=== PATIENT | male | born 1970 | race Caucasian/White ===

== ENCOUNTER 2019-10-28 15:28 | Observation (INO) | payer OTHER ==
[2019-10-28] MEDS ORDERED: NS 0.9% 1000 ML** 1,000 ML IV.FLUID IV ONE (15:33)
[2019-10-28] MEDS ORDERED: NS 0.9% 1000 ML** 1,000 ML IV ONE ×3 (15:39→18:04)
[2019-10-28] MEDS ORDERED: Diltiazem IV BAG* D5W Premix 125 MG/125 ML BAG IV ONE (15:40)
[2019-10-28] MEDS ORDERED: Diltiazem IV push/loading dose 5 MG/ML 5 ML vial (25 mg) IV SLOW PU ONE (15:40)
--- NOTE | 2019-10-28 15:41 | ED ---
Hypertension - HPI Summary HPI Summary: This patient is a 49 year old M presenting to [facility] with a chief complaint of heart racing/ Afib since this morning 10/28/19. Symptoms aggravated by nothing. Symptoms alleviated by nothing. Patient reports abdominal pain, vomiting (twice today). Patient denies diarrhea, recent cough, cold, or fever, pain or swelling in legs, pain or pressure in chest. Denies hx blood clots in legs, diabetes, HTP. Last ate yesterday. Has had afib around once before. Pt reports drinking alcohol yesterday (few shots of bourbon) but denies drinking today. - History of Current Complaint Chief Complaint: EDDysrhythmPalp Stated Complaint: A FIB Time Seen by Provider: 10/28/19 15:30 Hx Obtained From: Patient Onset/Duration: Started Hours Ago, Still Present Timing: Lasting Hours Aggravating Factor(s): Nothing Alleviating Factor(s): Nothing Associated Signs & Symptoms: Other: - abdominal pain, vomiting; denies diarrhea , recent cough, cold, or fever, pain or swelling in legs, pain or pressure in chest - Allergies/Home Medications Allergies/Adverse Reactions: Allergies Allergy/AdvReac Type Severity Reaction Status Date / Time phenobarbital Allergy Unknown Verified 10/28/19 15:33 Reaction Details Home Medications: Home Medications Omeprazole CAP (NF) [Prilosec CAP* 20 MG] 40 mg PO DAILY 10/28/19 [History Confirmed 10/28/19] PMH/Surg Hx/FS Hx/Imm Hx Endocrine/Hematology History: Denies: Hx Diabetes Cardiovascular History: Reports: Hx Atrial Fibrillation Denies: Hx Hypertension - Surgical History Surgery Procedure, Year, and Place: 2 knee surgeries, hernia Infectious Disease History: No Infectious Disease History: Denies: Traveled Outside the [place] in Last 30 Days - Family History Known Family History: Positive: Cardiac Disease, Other - anxiety, alcoholism Negative: Diabetes - Social History Alcohol Use: Weekly Hx Substance Use: Yes 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 Negative: Chest Pain - denies pain or pressure in chest Positive: Abdominal Pain, Vomiting. Negative: Diarrhea Positive: Other - denies pain or swelling in legs All Other Systems Reviewed And Are Negative: Yes Physical Exam - Summary Physical Exam Summary: Constitutional: Well-developed, Well-nourished, Alert. (-) Distressed Skin: Warm, Dry HENT: Normocephalic; Atraumatic Eyes: Conjunctiva normal Neck: Musculoskeletal ROM normal neck. (-) JVD, (-) Stridor, (-) Tracheal deviation Cardio: tachycardic, irregular rhythm, Heart sounds normal; Intact distal pulses ; The pedal pulses are 2+ and symmetric. Radial pulses are 2+ and symmetric. (- ) Murmur Pulmonary/Chest wall: (-) Respiratory distress, faint expiratory wheezes bilaterally, (-) Rales Abd: Soft, (-) tenderness, (-) Distension, (-) Guarding, (-) Rebound Musculoskeletal: (-) Edema Lymph: (-) Cervical adenopathy Neuro: Alert, Oriented x3 Psych: Mood and affect Normal Triage Information Reviewed: Yes Vital Signs On Initial Exam: Initial Vitals Temp Pulse Resp BP Pulse Ox 97.1 F 163 16 147/103 98 10/28/19 15:29 10/28/19 15:29 10/28/19 15:29 10/28/19 15:29 10/28/19 15:29 Vital Signs Reviewed: Yes Procedures - Sedation Patient Received Moderate/Deep Sedation with Procedure: No Diagnostics - Vital Signs Vital Signs Temp Pulse Resp BP Pulse Ox 10/28/19 15:29 97.1 F 163 16 147/103 98 - Laboratory Result Diagrams: 10/28/19 15:54 10/29/19 06:37 Lab Statement: Any lab studies that have been ordered have been reviewed, and results considered in the medical decision making process. - Radiology Chest X-Ray Radiology Interpretation Completed By: Radiologist Summary of Radiographic Findings: Per radiologist,. NO ACTIVE CARDIOPULMONARY DISEASE. ED Physician has reviewed this imaging report. - EKG 1531 Cardiac Rate: NL - 165 BPM Summary of EKG Findings: An EKG taken at 1531 reveals atrial fibrillation at 165 bpm and no stemi. Hypertension Course/Dx - Course Course Of Treatment: This patient is a 49 year old M presenting to [facility] with a chief complaint of heart racing/ Afib since this morning 10/28/19. Patient reports abdominal pain, vomiting (twice today). Patient denies diarrhea, recent cough, cold, or fever, pain or swelling in legs, pain or pressure in chest. Denies hx blood clots in legs, diabetes, HTP. Last ate yesterday. Has had afib around once before. Physical Exam Findings reveal no abnormalities except for tachycardic, irregular rhythm. An EKG taken at 1531 reveals atrial fibrillation at 165 bpm and no stemi. CXR reveals NO ACTIVE CARDIOPULMONARY DISEASE. Test results with no significant abnormalities expect for RBC 5.92 H, Absolute Neuts 7.9 H, Absolute Lymphs 0.8 L, Carbon Dioxide 19 L, Anion Gap 15 H , BUN/Creatinine Ratio 7.9 L, Glucose 148 H, Lactic Acid 2.9 H, Magnesium 1.1 L , Total Bilirubin 1.40 H,. In the ED course the patient was given diltiazem/ Dextrose 10 mls/hr, saline, Diltiazem Hcl 20 mg. We discussed patient care with hospitalist, Dr. Silva, who accepts patient for admission. Patient will be admitted with Dx Afib with RVR and hypomagnesemia. The patient is agreeable with this plan. - Diagnoses Provider Diagnoses: Atrial fibrillation with RVR, Hypomagnesemia - Physician Notifications Discussed Care Of Patient With: Francine Joy Time Discussed With Above Provider: 16:48 - call [place] for recommendations Instructed by Provider To: Other - 1656- flores, Cardiology, wants to talk to Rufino; 1722- Rufino tells ED physician to talk to Dr. Mack of ICU; 1726 Dr. Mack is likely to admit pt but there are no current ICU beds available; 1847 Shira refers ED Physician back to [place]; 1848 Dr. Mack will reach out to Dr. Silva; 1900 Dr. Silva accepts pt for admission - Critical Care Time Critical Care Time: 30-74 min - 60 minutes Discharge ED - Sign-Out/Discharge Documenting (check all that apply): Patient Departure - admit - Discharge Plan Condition: Stable Disposition: ADMITTED TO [facility] - Billing Disposition and Condition Condition: STABLE Disposition: Admitted to [facility] - Attestation Statements Document Initiated by Scribe: Yes Documenting Scribe: Rajni Hall Provider For Whom Scribe is Documenting (Include Credential): Dr. Kaveh Hicks, Jacky.OKeith Scribe Attestation: IRajni, scribed for Dr. Kaveh Hicks, RandyOKeith on 10/29/19 at 1259. Scribe Documentation Reviewed: Yes Provider Attestation: The documentation as recorded by the scribe, Rajni Hall accurately reflects the service I personally performed and the decisions made by me, Dr. Kaveh Hicks, Jacky.O. Status of Scribe Document: Viewed
[2019-10-28 16:16] LABS: ABS Lymphocytes 0.8 10^3/ul (1.0-4.8); ABS Monocytes 0.4 10^3/ul (0-0.8); ABS Neutrophils 7.9 10^3/ul (1.5-7.7); Eosinophil % 0.2 %; Hematocrit 49 % (42-52); Lymphocyte % 8.8 %; Mean Corpuscular HGB Conc 35 g/dL (31-36); Mean Corpuscular Hemoglobin 29 pg (27-31); Mean Corpuscular Volume 82 fL (80-94); Mean Platelet Volume 8.5 fL (7.4-10.4); Platelet Count 156 10^3/uL (150-450); Red Blood Count 5.92 10^6 /uL (4.18-5.48); Red Cell Distribution Width 15 % (10-15); White Blood Count 9.1 10^3/uL (3.5-10.8)
[2019-10-28 16:30] LABS: ALT 31 U/L (7-52); AST 34 U/L (13-39); Albumin 4.5 g/dL (3.2-5.2); Albumin/Globulin Ratio 1.5 (1-3); Alkaline Phosphatase 85 U/L (34-104); Anion Gap 15 mmol/L (2-11); BUN/Creatinine Ratio 7.9 (8-20); Blood Urea Nitrogen 7 mg/dL (6-24); CO2 Carbon Dioxide 19 mmol/L (22-32); Chloride 102 mmol/L (101-111); EGFR African American 109.9 (>60); EGFR Non-African American 90.9 (>60); Glucose 148 mg/dL (70-100); Magnesium 1.1 mg/dL (1.9-2.7); Potassium 3.5 mmol/L (3.5-5.0); Sodium 136 mmol/L (135-145); Total Protein 7.5 g/dL (6.4-8.9)
[2019-10-28] MEDS ORDERED: Potassium Chlor TAB* 20 MEQ TAB.ER PO ONE (16:42)
[2019-10-28] MEDS ORDERED: Magnesium Sulfate 2 GM IV* 2 GM/50 ML BAG IVPB ONE (16:42)
[2019-10-28 17:01] LABS: Alcohol < 10 mg/dL (<10)
[2019-10-28 17:06] LABS: Activated Partial Thrombo Time 29.1 seconds (26.0-38.0); INR 1.01 (0.82-1.09)
[2019-10-28 17:15] LABS: TSH (Thyroid Stimulating Horm) 0.88 mcIU/mL (0.34-5.60)
--- OUTSIDE RECORDS SUMMARY | 2019-10-28 17:16 | XMS REPORT | Continuity of Care Document ---
:1970 Author Organization 0001 - [employer] Address [address] [place] [address] Phone Care Team Providers Name Role Phone CHRISTIAN PIMENTEL NP Unavailable Unavailable Allergies, Adverse Reactions, Alerts Substance Reaction Status phenobarbital Unknown Active Medications Medication Instructions Dosage Effective Dates Status Comments (start - stop) Viagra 50 mg take 1 tablet by oral 50 MG - Active tablet route every day as needed approximately 1 hour before sexual activity omeprazole 40 mg take 1 capsule by 40 MG - Active capsule,delayed oral route every day release before a meal Valtrex 1 gram take 1 caplet by ORAL - Active tablet route every 8 hours as needed for 7 days. Viagra 50 mg take 1 tablet by oral 50 MG - No Longer tablet route every day as Active needed approximately 1 hour before sexual activity labetalol 100 mg take 1 tablet by oral 100 MG - No Longer tablet route 3 times every Active day Problems Condition Effective Dates (start - Clinical Status stop) Essential (primary) hypertension Erectile dysfunction, unspecified erectile dysfunction type Gastroesophageal reflux disease without esophagitis Mild depression Essential (primary) hypertension Cellulitis of right hand STI (sexually transmitted infection) Cellulitis of right hand Erectile dysfunction, unspecified erectile dysfunction type Essential (primary) hypertension Personal history of nicotine - dependence Essential (primary) hypertension - Contact w and exposure to infect w - a sexl mode of transmiss Essential (primary) hypertension Generalized anxiety disorder Sexually transmitted disease exposure Hemorrhoids Herpes simplex Vaccine against DTP - Laceration of scalp Concussion with no loss of consciousness Depression Depression Reaction, adjustment w/mixed emotion Muscle strain Accidental fall NOS - Place of occurrence NEC - Hypertension, Unspecified Depression Hypertension, Unspecified Depression Hypertension, Unspecified Depression Reaction, adjustment w/mixed emotion Reaction, adjustment w/mixed emotion Hypertension, Unspecified Reaction, adjustment w/mixed emotion Hypertension, Unspecified Sinusitis, acute maxillary Depression Hypertension, Unspecified Depression Hypertension, Unspecified Hypertension, Unspecified Atrial fibrillation Hypertension, Unspecified Hypertension, Unspecified - Atrial Fibrillation Hypertension, Unspecified Atrial Fibrillation - Hypertension, Unspecified - Depression Atrial Fibrillation Depression Atrial Fibrillation - Depression - Atrial Fibrillation Diverticulitis Depressive disorder Atrial Fibrillation - Diverticulitis, colon w/o hem - Depression - Atrial Fibrillation Shortness of breath Elevated liver enzymes Abdominal pain Atrial Fibrillation - Atrial Fibrillation - Atrial Fibrillation - Shortness of Breath - Abnormal Liver Enzymes - Abdominal Pain - Raynauds disease Raynaud's Syndrome - Reflux, esophageal Contraceptive management NOS - Mixed Hyperlipidemia Diverticulosis, colon w/o hem Contraception management Acute Bronchitis, acute Acute Mixed Hyperlipidemia Chronic Atrial Fibrillation Improved Examination, routine medical No evidence of disease Diverticulosis, colon w/o hem Resolved Routine Medical Exam Routine Adjustment reaction with anxiety Symptomatic and depression Procedures Procedure Date Procedure Unknown Results Test Name Date and Time Measure Units Reference Range Abnormal Flag Status Comments Unknown Encounters Encounter Practice Location Reason(s) Diagnoses Date Provider Providers Description For Visit Copied on Encounter 2019 - [facility] Primary Essential (primary) [facility] hypertensionErectil 2-202 CHRISTIAN. [address] [place] e dysfunction, [address], Street, erectile [place] dysfunction [place], [place], [place], [address], [place] l reflux disease [address]. tel: without tel: [phone] esophagitisMild [id number] depression 2019 - [facility] Primary Dec-3 NED[facility], [facility] [place] - CHRISTIAN. [address] [place] [address] [facility], Street, [facility], [place], [place], [address], [place] [address]. tel:+60 tel:[phone] 0001 - [facility] Primary Essential (primary) Nov- LORD ANUSHA. [facility], [facility] hypertension 6- [facility] 119 [address], [address], [place], [facility], [place], [address]. [address], [place] tel:+60 tel:[phone] 0001 - [facility] Primary Cellulitis of right Sep-1 LORD ANUSHA. [facility], [facility] handSTI (sexually [facility] 119 [address] [place] transmitted [address], [place] infection) [facility], [place], [address]. [address], [place] tel:+60 tel:[phone] 0001 - [facility] Primary Cellulitis of right Sep-1 LORD ANUSHA. [facility], [facility] handErectile [facility] 119 [address] [place] dysfunction, [address], Eron unspecified [facility], erectile [place], [facility], [place], [place], typeEssential [address]. [address], [place] (primary) tel:+60 tel:[phone] hypertensionPersona [phone] l history of nicotine dependence 0001 - [facility] Primary February- LORD TAVARES. [facility] Inc, [facility] 119 [address] [place] [address], [address], [facility], [place], [address]. [address], [place] tel:+60 tel:[phone] 0001 - [facility] Primary Essential (primary) Apr-2 LORD ANUSHA. [facility] Inc, [facility] hypertensionContact 0-201 [facility] 119 [address] [place] w and exposure to [address], Eron infect w a sexl [facility], mode of transmiss [facility], [place], [address]. [address], [place] tel:+[phone] tel:[phone] 0001 - [facility] Primary Essential (primary) Apr-1 LORD ANUSHA. [facility], [facility] hypertensionGeneral - [facility] 119 [address] [place] ized anxiety 8 [facility], [place] disorderSexually [facility], transmitted disease [facility], [place], [address]. [address], [place] tel: tel: [phone] 0001 - [facility] Primary Hemorrhoids May- SKIFF [facility], [facility] THEE. [address] [place] 5 [facility] PC Eron 119 [facility], [place], [place], [place], [address], [facility], tel: [phone] tel: [phone] 0001 - [facility] Primary Herpes simplex Nov- SKIFF [facility] Inc, [facility] THEE. [address] [place] 4 [facility] PC [address] [place], [place], [place], [address], [facility], tel: [phone] tel: [phone] 0001 - [facility] Primary Vaccine against Jul- SKIFF Referring [facility] DTPLaceration of THEE. Provider: NathalieLuis [place] scalpConcussion 4 [facility] PC THEE [place] with no loss of [address] SKI, [facility] Street, [facility], 119 [facility], [place], [place], [facility] [address], [facility], tel: [phone], [phone]. [id number] tel: tel:[phone] 0001 - [facility] Primary Depression Sep-0 LORD ANUSHA. S Inc, [facility] 8- SP 119 [address] [place] 4 [facility], [facility], [facility], [place], [address]. [address], [place] tel: tel: [phone] 0001 - [facility] Primary Depression Sep-0 LORD ANUSHA. Referring [facility] 3- SPC 119 Provider: [address], ANUSHA PEREZ, [facility] 119 [place], [place], [facility], [place], [address]. [place], [address], [place], [address]. tel: [phone] tel: [phone] 0001 - S Primary Reaction, Apr-0 SKIFF Referring [facility], [facility] [place] adjustment w/mixed THEE. Provider: 33[address] SKIFF, [facility], 119 [facility], [place], [place], [facility] [address], [place], [place], tel: [address]. [place], [address]. [id number] tel: tel: [phone] 0001 - S [employer] Dec- PEDRO LUIS HO. Referring [facility], [place] strainAccidental 4417 Provider: Tillman fall NOSPlace of [address] [place] [address]. [facility], [place], [address], [place] [address]. tel: tel: [phone] 0001 - [facility] Primary Hypertension, Dec-0 LORD TAVARES. [facility], [facility] [place] UnspecifiedDepressi 3-201 SP 119 [address] [place] on [address] [place] [address], [place], [address]. [address], [place] tel: tel: [phone] 0001 - [facility] Primary Hypertension, Nov-0 LORD TAVARES. [facility], [facility] [place] UnspecifiedDepressi 5-201 SPC 119 [address] [place] on 3 [facility], [place], [address]. [address], [place] tel: tel: [phone] 0001 - [facility] Primary Hypertension, Oct-2 LORD TAVARES. [facility], [facility] UnspecifiedDepressi 9-201 SPC 119 [address] [place] on 3 [facility], [address] [address], [place], [facility], [place], [address]. [address], [place] tel: tel: [phone] 0001 - S Primary Reaction, Sep-1 LORD AUNSHA. Referring [facility] adjustment w/mixed 1 [facility] 119 Provider: Nathalie-57 Sha emotion 3 [facility], ANSUHA LORD, Eron [facility] [address], [place], [facility], [facility], [place], [address]. [place], [address], [place] tel:+ [place], [address]. tel: [phone] tel: [phone] 0001 - S Primary Reaction, Sep-0 LORD ANUSHA. [facility] adjustment w/mixed 3-201 [facility] 119 [address] [place] emotionHypertension 3 [facility], [place] , [address], [place], [facility], [place], [address]. [address], [place] tel: tel: [phone] 0001 - S Primary Reaction, Aug-2 LORD ANUSHA. Referring [facility] adjustment w/mixed 7 [facility] 119 Provider: Maribel Dalton emotionHypertension 3 [facility], ANUSHA LORD, [place] , [facility] [address], UnspecifiedSinusiti [place], [facility], Western s, acute [facility], [place], [address]. [place], [address], [place], [address]. tel: [phone] tel:[phone] 0001 - S Primary Adjustment reaction Aug-1 SKIFF Referring [facility] with anxiety and THEE. Provider: Tamera57 Sha depression 3 [facility] THEE [place] 119 [facility] SKI, [facility] Street, St, 119 [facility], [facility], [place], [place], [place] [address], [place], [place], tel: [phone]. [place], [address]. [id number] tel: tel:[phone] 0001 - [facility] Primary DepressionRoutine LORD TAVARES. Referring [facility], [facility] Medical Exam [facility] 119 Provider: 33[address] [place] 3 [facility], ANUSHA PEREZ, [facility] [address], [place], [facility], [facility], [place], [address]. [place], [address], [place] tel:+ [place], [address]. tel: [phone] tel: [phone] 0001 - [facility] Primary Hypertension, LORD TAVARES. Referring [facility], [facility] UnspecifiedDepressi 6 [facility] 119 Provider: 33-57 Sha on 3 [facility], ANUSHA PEREZ, [facility] [address], [place], [facility], [facility], [place], [address]. [place], [address], [place]:+ [place], [address]. tel: [phone] tel: [phone] 0001 - [facility] Primary Hypertension, LORD TAVARES. Referring [facility], [facility] Unspecified 2- [facility] 119 Provider: [address] [place] 3 [facility], ANUSHA PEREZ, [facility] [address], [place], [facility], [facility], [place], [address]. [place], [address], [place], [address]. tel: [phone] tel: [phone] 0001 - [facility] Primary Hypertension, LORD TAVARES. [facility], [facility] Unspecified 2- [facility] 119 [address] [place] [address] [facility] [address], [facility], [place], [facility], [place], [address]. [address], [place] tel: tel: [phone] 0001 - [facility] Tram Atrial fibrillation Mar-2 GAUTAM [facility], Cardiology PRINCE. 30 33-57 3 [facility], [place], [place] [address], [place], [place], [place] [address], [place], [place], tel: [phone] tel: [phone] 0001 - [facility] Primary Hypertension, Mar-2 LORD TAVARES. [facility], [facility] [place] UnspecifiedHyperten - [facility] 119 [address] [place] sheila, Unspecified [address], [facility] [address], [place], [place], [place], [address]. [address], [place] tel: tel: [phone] 0001 - [facility] Tram Atrial Mar-1 GAUTAM [facility], Cardiology FibrillationHyperte - PRINCE. 30 33[address]57 nsion, 3 [facility] Un[address], [place], FibrillationHyperte [address] nsion, Unspecified 250, [place], [place], [place] [address], [place], [place], tel: [phone] tel: [phone] 0001 - [facility] Primary DepressionAtrial Feb-2 LORD TAVARES. [facility], [facility] FibrillationDepress - [facility] 119 [address] [place] ionAtrial 3 [facility], [place] FibrillationDepress [facility], ion [place], [place], [place], [address]. [address], [place] tel: tel: [phone] 0001 - [facility] Primary Atrial Feb-1 LORD TAVARES. [facility], [facility] FibrillationDiverti - [facility] 119 [address] [place] culitisDepressive 3 [facility], [place] disorderAtrial [facility], FibrillationDiverti [place], Western culitis, colon w/o [place], [place], [place], hemDepression [address]. [address], [place] tel: tel: [phone] 0001 - [facility] Primary Atrial Feb-0 LORD TAVARES. Referring [facility], [facility] FibrillationShortne 4- [facility] 119 Provider: 33-57 [place] ss of [address], ANUSHA PEREZ, [place] breathElevated [facility] [address], liver [place], [facility], [place] enzymesAbdominal [place], [place], [place], painAtrial [address]. [place], [address], [place] FibrillationAtrial [place]: [place], [address]. tel: FibrillationAtrial [phone] tel:+ [phone] FibrillationAtrial [phone] FibrillationShortne ss of BreathAbnormal Liver EnzymesAbdominal Pain 0001 - [facility] Primary Raynauds Sep- [facility] Pick a Student, [facility] diseaseRaynaud's 0-201 THEE. [place] Syndrome [address], [place], [address], [place], tel:+ [phone] tel: [phone] 0001 - [facility] Primary Reflux, esophageal Dec- LORD TAVARES. [employer], [facility] 7-201 [place] [address] [address] [place] [address], [place], [address]. [address], [place] tel: tel: [phone] 0001 - [facility] Primary Contraception Oct- [facility] Pick a Student, [facility] managementContracep 3-201 THEE. [place] tive management NOS [address], [place], [address], [place], tel:+ [phone] tel: [phone] 0001 - [facility] Primary Mixed Paulo- LORD TAVARES. [employer], [facility] HyperlipidemiaDiver 5-[address] [place] [address] [address] [place] [address] ticulosis, colon 0 [facility] w/o hem [facility], [place], [address]. [address], [place] tel:+ tel: [phone] 0001 - [facility] Primary Diverticulosis, February-0 LORD TAVARES. [employer], [facility] colon w/o hemMixed 3-[address] [place] [address] [address] [place] [address] Hyperlipidemia 0 [facility], [place], [address]. [address], [place] tel:+ tel:+ [phone] 0001 - [facility] Primary Examination, [facility] Pick a Student, [facility] routine medical 0-200 THEE. [place] [address], [place], [address], [facility], tel: [phone] tel: [phone] 0001 - [facility] Primary Bronchitis, acute Dec- SKIFF [facility], [facility] 0-200 THEE. [address] [place] [address], [place], [address], [facility], tel: [phone] tel: [phone] 0001 - [facility] Primary Nov- LORD ANUSHA. [facility], [facility] 6[address] [place] [address] [address] [place] 5 [place], [address]. [address], tel: tel: [phone] Family History Family Member Diagnosis Age At Onset Family history of Heart disease Father Father Lung disease Family history of Hypertension Father COPD (Cause Of ) Father Atrial Fibrillation (Cause Of ) Father Brother Atrial Fibrillation Family history of Bowel disorder Immunizations Vaccine Date Status Comments Tdap administered Source: Source Unspecified Payers Payer name Insurance type Covered republican ID Authorization(s) [facility] Organiz Contrac UB or 1500 He Social History Type Description Quantity Date Captured Comments Alcohol Use Details Unknown Caffeine Use Details Unknown Tobacco Use Status Unknown Smoking Status Unknown Vital Signs Date / Height Weight BMI Pulse Blood Temperature Respiratory Body Head BMI Time: Rate Pressure Rate Surface Circumference percentile Area Unknown Chief Complaint And Reason For Visit No information Reason For Referral Reason For Referral Unknown Plan Of Care Date Type Action Status Referral Ordered: ordered Nuclear Scan Myocardial Perfusion Rest and Stress (must specify Treadmill or Per Appointment date/timeframe: 01/12/2013 Referral Referred To: ordered PRINCE FLOREZ [address] [facility] [place], [address] [phone] Ordered: PRINCE FLOREZ. Cardiology. Consult and treat. Referral Ordered: ordered EKG, Complete Referral Ordered: ordered Echocardiography With Color Flow Referral Ordered: ordered Nuclear Scan Lung Perfusion Referral Ordered: ordered CT Abdomen & Pelvis w/Contrast Referral Ordered: ordered Xray Chest 2 view Referral Ordered: ordered CT Chest Angiogram Referral Referred To: ordered YOON SNYDER [facility] [address] [place], [address] [phone] Ordered: YOON SNYDER. Urology. Consult and treat. Appointment date/timeframe: 11/24/2011 Referral Ordered: ordered . Gastroenterology. Consult and treat. Appointment date/timeframe: 03/11/2010 Date Type Problem Goal Intervention Status Start Date Unknown History Of Present Illness Encounter Date Complaint History Of Present Illness No information Functional Status Encounter Date Functional Assessment Cognitive Assessment Unknown Medications Administered Medication Instructions Dosage Effective Dates (start - stop) Status Comments Drug Treatment Unknown Instructions Date Instruction Additional Information Pt states he is handling this Related to Mild depression through staying active and working. States he does not want to be on medications at this time. Pt to call with any worsening symptoms of depression or suicidal thoughts. Begin taking the Omeprazole 40mg Related to Gastroesophageal reflux once per day at least 30 minutes disease without esophagitis before breakfast. Call with any worsening symptoms or if symptoms fail to improve. Risks and benefits of new medication discussed. Continue taking the Viagra one tab Related to Erectile dysfunction, one hour before sexual unspecified erectile dysfunction type activity..Call with any further concerns. Our goal is for your blood pressure Related to Essential ( primary) to be less than 140/90. Continue a hypertension low salt, low fat diet. Check blood pressure routinely, call with any increase in blood pressure over 140/90. Complete the 10 days of the Keflex Related to Cellulitis of right hand that I prescribed and culture was obtained today, I will send for C&S and let you know of the results. PT will be tested today for HIV, Hep Related to STI (sexually transmitted C and RPR and will retest again in 6 infection) months. Continue with low salt diet and Related to Essential (primary) increase activity level. Our goal is hypertension for your blood pressure to be below 140/90. PT agrees to take his medication as prescribed if I gave him the viagra to use for any issues with erectile dysfunction. Pt will trial the viagra 50mg one Related to Erectile dysfunction , hour prior to intercourse and will unspecified erectile dysfunction type call for any further issues or concerns. Risks and benefits of new medication discussed. Patient verbalized understanding Pt will soak the right hand in epsom Related to Cellulitis of right hand salts three times per day and keep the hand clean and take Keflex three times per day for another 10 days , call if the area worsens or fails to improve in the next few days. Continue with low salt diet and Related to Essential (primary) increase activity level. Our goal is hypertension for your blood pressure to be below 140/90. We will start on Labetolol one tablet three times per day and recheck in 2 weeks, Get the labs done a some point next week. I ordered HIV, RPR , GC and Related to Sexually transmitted Chlamydia in the urine, he will get disease exposure that done next week. PT is going to start counseling at Related to Generalized anxiety [facility] and form completed disorder today. Follow the recommendations on the Related to Hemorrhoids handout and use the proctocorsol cream as needed. When it become feasible we can refer to surgery , if desired. I have prescribed valtrex in case of Related to Herpes simplex recurretn attacks . He will have further STI testing through the health department. WAtch for progressive neurologic Related to Concussion with no loss of signs, rest. Follow up in one week. consciousness Wound close with histocryl glue. Related to Laceration of scalp [place]vised [place] [facility] for evidence of infection PT will continue his Klonopin as Related to Depression needed, the effexor every day and was able to contract for safety at today's visit. He agrees to try to call [facility] in [place] for assistance as well. Pt will restart the effexor XR daily Related to Depression and use the Klonopin one every 8 hours as needed for anxiety, do not drink any alcohol at all with the current meds. Pt agrees to call a [facility] in [place] and keep the appt with the ceo & board director, pt is able to contract for safety. Agrees to call the crisis center for any further needs or thoughts of suicide.
[2019-10-28] MEDS ORDERED: Metoprolol Tartrate IV* 1 MG/ML 5 ML VIAL IV ONE (18:03)
[2019-10-28] MEDS ORDERED: Enoxaparin(*) 100 MG/ML SYR SUBCUT ONE (19:13)
[2019-10-28] MEDS ORDERED: Metoprolol Tartrate IV* 1 MG/ML 5 ML VIAL IV PRN (19:18)
[2019-10-28] MEDS ORDERED: Metoprolol Tartrate TAB* 25 MG PO ONE (19:23)
[2019-10-28] MEDS ORDERED: Thiamine INJ* 100 MG/ML 2 ML VIAL IM ONE (19:45)
[2019-10-28] MEDS ORDERED: Acetaminophen TAB* 325 MG PO PRN (19:45)
[2019-10-28 19:46] LABS: BUN/Creatinine Ratio 8.6 (8-20); Calcium 8.4 mg/dL (8.6-10.3); EGFR African American 122.6 (>60); EGFR Non-African American 101.3 (>60); Magnesium 1.6 mg/dL (1.9-2.7)
[2019-10-28] MEDS ORDERED: LORazepam TAB(*) 1 MG PO SCH (20:00)
[2019-10-28 20:04] LABS: Troponin I 0.01 ng/mL (<0.03)
[2019-10-28] MEDS: Diltiazem IV BAG* D5W Premix 125 MG/125 ML BAG IV SCH ×2 (21:00→23:03)
[2019-10-28] MEDS: Metoprolol Tartrate TAB* 25 MG PO SCH (21:11)
[2019-10-28] MEDS: NS 0.9% 1000 ML** 1,000 ML IV SCH (21:15)
--- NOTE | 2019-10-28 22:08 | HP ---
CC: Dr. 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 TIME OF EVALUATION: 7:10 a.m. CHIEF COMPLAINT: "I was sick." HISTORY OF PRESENT ILLNESS: Mr. Ervin is a 49-year-old male with a past medical history of poly substance abuse who presents to the emergency room with complaints of nausea, vomiting, diarrhea, markie phoresis, palpitations, and shortness of breath. The patient states that he went to bed around midnight last night on his usual state of health. He h ad had 3 shots of bourbon prior to going to bed and this is not unusual for him. He states that he w janett up late today, close to noon, with nausea, had multiple episodes of vomiting and those were follo wed by liquid diarrhea. He states that he had "sweats and chills" and finally around 2 p.m. he decid ed to come to the emergency room for further evaluation. 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 He states that while in the bathroom, he had palpitations but no chest pain and also felt a little "winded." He denies urinary complaints. PAST MEDICAL HISTORY: 1. One episode of atrial fibrillation in 2011 that resolved spontaneously in the emergency room. At that point, he was told that this was likely alcohol related. 2. Polysubstance abuse. The patient states that he has used multiple drugs in the past but most rec ently he was injecting and snorting methamphetamines. He went to [facility] inpatient rehab and was discharged in August and states that he has not used any drugs since then. He denies smoking c igarettes but he does chew tobacco a tin a day since he was 10. He states that he used to drink a lo t when he was using drugs and since getting out from rehab he states that he is drinking less than be fore. He describes drinking 2 to 3 shots of bourbon 2 to 3 times a week. PAST SURGICAL HISTORY: 1. Status post 2 knee surgeries. 2. Status post hernia repair. FAMILY HISTORY: Mother last year of suicide. His father had history of heart disease and was a drinker, of cirrhosis. SOCIAL HISTORY: The patient works at [email or web address]. Details about tobacco, alcohol, and drug use ar e in the past medical history. REVIEW OF SYSTEMS: A 14-point review of systems was performed, and all the pertinent negatives and p ositive findings are in the HPI. PHYSICAL EXAMINATION GENERAL: The patient is a middle-aged gentleman, lying on the stretcher, in no acute distress. VITAL SIGNS: Temperature is 97.1, heart rate is 129, respiratory rate is 16. Oxygen saturation is 99 % on room air, and blood pressure is 125/99. HEENT: Pupils are equal, moist mucous membranes. CHEST: Breath sounds bilaterally with no added sounds. CVS: Normal S1, S2. Irregularly irregular. Tachycardic. ABDOMEN: Obese, soft, nontender, and nondistended. Bowel sounds are present. EXTREMITIES: No edema. NEURO: He is alert and oriented x3. Able to move all 4 extremities. DIAGNOSTIC STUDIES/LAB DATA: The patient had CBC that showed WBC of 9.1, hemoglobin of 17, hematocr it of 49, platelets of 156 with 86% neutrophils. INR is 1.01. Chemistry showed a sodium of 136, pota ssium of 3.5, chloride of , 102, bicarb of 19, anion gap of 15, BUN of 7, creatinine of 0.89, glucose of 148 with lactic acid of 2.9, calcium is 9. Magnesium was 1.1. Total bilirubin 1.4. Remainder o f LFTs were normal. First troponin was 0. TSH 0.88. The patient had a repeat lactic acid at 6:20 t hat was 1.9. Serum alcohol level was less than 10. Chest x-ray was reviewed. This shows no acute cardiopulmonary disease and EKG done on 10/28/19 at 3: 31 p.m. showed atrial fibrillation with rapid ventricular rate with a heart rate of 165 with no acute ischemic changes. No prior EKGs to compare. ASSESSMENT AND PLAN: Mr. Ervin is a 49-year-old male with a past medical history of one prior e pisode of atrial fibrillation, spontaneously resolved; polysubstance abuse who presents to the emerge ncy room with nausea, vomiting, diarrhea, as well as palpitations and dyspnea, found to be atrial fib rillation with rapid ventricular rate. 1. Atrial fibrillation with rapid ventricular rate. Suspect it is a combination of alcohol use, deh ydration and electrolyte imbalance in the setting of probable gastroenteritis. The patient will be a dmitted as observation to the telemetry floor and we will continue rate control strategy while we hyd rate and replete his electrolytes. The case was discussed with Cardiology. We are going to continue the Cardizem drip and add p.o. metoprolol as needed for rate control. Although he has a CHADS2-VASc score is only 0, it is unclear when the patient truly went into atrial fibrillation, so in case he d oes not convert after electrolyte repletion, he will need transesophageal echocardiogram with cardio version, so after discussing with Cardiology he will be placed on therapeutic dose of Lovenox in prep aration for possible cardioversion in the morning if necessary. 2. Dehydration/electrolyte imbalances. The patient has received IV hydration in the ED as well as m agnesium and potassium repletion. We will repeat those lab tests and replete further if necessary. 3. Gastroenteritis. I suspect this is likely associated with leftover the patient ate. His symptom s already appear to be improving, so I suspect this was likely toxin based. We will continue symptom atic treatment if necessary. 4. Polysubstance abuse. The patient states that he has not used any illicit drugs since August, a lthough he still drinks alcohol, it is at a smaller amount than before. We will place him on WAM pro tocol because I am concerned he may be underestimating his alcohol intake. 5. DVT prophylaxis: The patient has a score of 1 on the DVT Prophylaxis Assessment Guide and he is anticoagulated with Lovenox. 6. Code status is full. TIME SPENT: Approximately 55 minutes was spent with the patient interview, medical record review, ph ysical examination to complete this admission, more than half of this time was spent [id number] wit h the patient and coordination of care. [id number]/[facility] #: [id number]
[2019-10-29] MEDS ORDERED: Calcium Carbonate CHEW TAB* 500 MG (TUMS) PO ONE (01:00)
[2019-10-29] MEDS: Metoprolol Tartrate TAB* 25 MG PO SCH ×3 (01:13→14:35)
[2019-10-29 07:09] LABS: BUN/Creatinine Ratio 8.4 (8-20); Calcium 8.4 mg/dL (8.6-10.3); EGFR African American 119.2 (>60); EGFR Non-African American 98.5 (>60); Magnesium 1.7 mg/dL (1.9-2.7); Potassium 3.9 mmol/L (3.5-5.0)
[2019-10-29] MEDS ORDERED: Magnesium Sulfate 2 GM IV* 2 GM/50 ML BAG IVPB ONE (07:30)
[2019-10-29] MEDS: NS 0.9% 1000 ML** 1,000 ML IV SCH ×2 (07:49→16:10)
[2019-10-29] MEDS: Folic Acid TAB* 1 MG PO SCH (08:20)
[2019-10-29] MEDS: Thiamine TAB* 100 MG TAB PO SCH (08:20)
[2019-10-29] MEDS: Multivitamins/Minerals TAB PO SCH (08:20)
[2019-10-29] MEDS: Enoxaparin(*) 100 MG/ML SYR SUBCUT SCH ×2 (09:01→20:27)
--- NOTE | 2019-10-29 13:49 | ECHO ---
*[facility]* [place] [address] Fax #: [phone] Transthoracic Echocardiogram Patient: Sunny Ervin : 1970 Study Date: 10/29/2019 Age: 49 Gender: M HR: 83 bpm Height: 68 in /172.7 cm BSA: 2 m^2 Weight: 189.6 lb /86.2 kg BMI: 28.9 kg/m^2 *Damascener: Jojo Patel [facility] *Referring Physician: * Karen LaughlinReading Physician: * Glenna Licea MD Indications: Atrial Fibrillation. History: Polysubstance abuse. Atrial fibrillation. Conclusions Summary: - Left ventricle: The cavity size is normal. Wall thickness is mildly increased. Systolic function is mildly reduced. The estimated ejection fraction is 45-50%. - Right ventricle: Systolic function is low normal. - Left atrium: The atrium is mildly dilated. - No evidence of intracardiac shunting on color Doppler. - Mitral valve: There is mild regurgitation. - Tricuspid valve: There is mild regurgitation. - The patient was in atrial fibrillation throughout the study. No prior echocardiogram to compare. Study data: Transthoracic echocardiogram. Procedure: Transthoracic echocardiography was performed. Image quality was good. Complete 2D, spectral Doppler, and color flow Doppler. Location: Bedside. Patient status: Inpatient. Patient room number: 446. Rhythm: Atrial fibrillation. Findings Left ventricle: The cavity size is normal. Wall thickness is mildly increased. Systolic function is mildly reduced. The estimated ejection fraction is 45-50%. Wall motion is normal; there are no regional wall motion abnormalities. Left ventricular diastolic function parameters are indeterminate. Right ventricle: The cavity size is normal. Systolic function is low normal. Left atrium: The atrium is mildly dilated. Right atrium: The atrium is at the upper limits of normal in size. Mitral valve: The leaflets are normal thickness. There is no evidence of stenosis. There is mild regurgitation. Aortic valve: The valve is trileaflet. The leaflets are normal thickness. There is trace regurgitation. Tricuspid valve: The leaflets are normal thickness. There is no evidence of stenosis. There is mild regurgitation. Pulmonic valve: The leaflets are normal thickness. There is no evidence of stenosis. There is no significant regurgitation. Aorta: The aortic root appears normal. The aortic arch appears normal. Pericardium: There is no significant pericardial effusion. Pulmonary arteries: Systolic pressure is within the normal range. Systemic veins: Inferior vena cava: Not well visualized. Measurements Left ventricle Value Ref Aortic valve Value Ref DANIELLE, LAX 4.6 cm 4.2 - 5.8 Jaime diam, ED 2.2 cm ----- ESD, LAX (H) 4.2 cm 2.5 - 4.0 Peak v, S 0.83 m/sec ----- FS, LAX (L) 9 % 25 - 43 Peak grad, S 3.0 mm Hg ----- PW, ED, LAX (H) 1.2 cm 0.6 - 1.0 E', lat jaime, TDI 13.0 cm/sec >=10.0 Mitral valve Value Re f E/e', lat jaime, 5 Peak E 0.7 m/sec ----- TDI Decel time 74 ms ----- E', med jaime, TDI 11.0 cm/sec >=7.0 E/e', med jaime, 6 Pulmonic valve Value Ref TDI Peak v, S 0.5 m/sec ----- E', avg, TDI 12.0 cm/sec Peak grad, S 1.0 mm Hg ----- E/e', avg, TDI 6 <=14 Tricuspid valve Value Ref LVOT Value Ref TR peak v 1.5 m/sec <=2.8 Peak deneen, S 0.76 m/sec Peak RV-RA grad, S 9 mm Hg ----- Ventricular septum Value Ref Aortic root Value Ref IVS, ED (H) 1.2 cm 0.6 - 1.0 Root diam 3.3 cm <4.1 Root max diam, ED 3.3 cm <4.1 Right ventricle Value Ref DANIELLE, LAX 2.9 cm Ascending aorta Value Ref DANIELLE minor ax, A4C (H) 3.7 cm 1.9 - 3.5 AAo AP diam, S 2.9 cm ----- mid AAo AP diam/bsa, S 1.5 cm/m^2 ----- Pressure, S 12 mm Hg Aortic arch Value Ref Left atrium Value Ref Arch diam 3.2 cm ----- AP dim, ES (H) 4.30 cm 3.00 - 4.00 Decending aorta Value Ref ML dim, A4C 4.6 cm Macarena peak deneen 0.59 m/sec ----- SI dim, A4C 6.2 cm Vol/bsa, ES, A/L (H) 37 ml/m^2 16 - 34 Pulmonary artery Value Ref Pressure, S 11.0 mm Hg ----- Right atrium Value Ref SI dim, ES 5.0 cm 3.4 - 5.3 ML dim, ES, A4C 4.4 cm 2.6 - 4.4 Estimated RAP 3 mm Hg Legend: (L) and (H) ken values outside specified reference range. Prepared and electronically signed by Glenna Licea MD 10/29/2019 13:49
[2019-10-29 13:51] LABS: HIV 4th Generation Nonreactive (Nonreactive)
[2019-10-29] MEDS: PROCHLORPERAZINE INJ 5 MG/ML 2 ML VIAL IV PRN (16:50)
--- NOTE | 2019-10-29 17:53 | PN ---
Subjective Date of Service: 10/29/19 Interval History: HOSPITALIST PROGRESS NOTE Patient seen and examined at bedside. Case reviewed and d/w Iris Schulte RN. He feels a little better today, but still has some dyspnea, dizziness, and nausea. Family History: Unchanged from Admission Social History: Unchanged from Admission Past Medical History: Unchanged from Admission Objective Active Medications: Acetaminophen (Tylenol Tab*) 650 mg PO Q4H PRN PRN Reason: MILD PAIN or TEMP > 100.4 Enoxaparin Sodium (Lovenox(*)) 90 mg SUBCUT Q12H [facility] Last Admin: 10/29/19 09:01 Dose: 90 mg Folic Acid (Folvite Tab*) 1 mg PO DAILY [facility] Last Admin: 10/29/19 08:20 Dose: 1 mg Sodium Chloride (Ns 0.9% 1000 Ml) 1,000 mls @ 150 mls/hr IV PER RATE [facility] Last Admin: 10/29/19 16:10 Dose: 150 mls/hr Lorazepam (Ativan Tab(*)) 0 - 6 mg PO .PER [facility] PROTOCOL [facility]; Protocol Last Admin: 10/28/19 21:33 Dose: 2 mg Metoprolol Tartrate (Lopressor Iv*) 5 mg IV Q4H PRN PRN Reason: HR>120 Metoprolol Tartrate (Lopressor Tab*) 25 mg PO Q6H [facility] Last Admin: 10/29/19 14:35 Dose: 25 mg Multivitamins/Minerals (Theragran/Minerals Tab*) 1 tab PO DAILY [facility] Last Admin: 10/29/19 08:20 Dose: 1 tab Prochlorperazine Edisylate (Compazine Inj*) 5 mg IV Q6H PRN PRN Reason: NAUSEA/VOMITING Last Admin: 10/29/19 16:50 Dose: 5 mg Thiamine HCl (Vitamin B-1 Tab*) 100 mg PO DAILY [facility] Last Admin: 10/29/19 08:20 Dose: 100 mg Vital Signs - 8 hr 10/29/19 10/29/19 10/29/19 11:00 11:03 13:17 Temperature 98.2 F 97.8 F Pulse Rate 93 59 Respiratory 18 18 16 Rate Blood Pressure 127/91 135/87 (mmHg) O2 Sat by Pulse 97 97 Oximetry 10/29/19 10/29/19 10/29/19 13:25 15:00 15:53 Temperature 97.9 F Pulse Rate 65 Respiratory 16 20 20 Rate Blood Pressure 127/72 (mmHg) O2 Sat by Pulse 98 Oximetry 10/29/19 10/29/19 16:53 16:59 Temperature 98.2 F Pulse Rate 72 Respiratory 16 16 Rate Blood Pressure 133/86 (mmHg) O2 Sat by Pulse 99 Oximetry Oxygen Devices in Use Now: None Appearance: Middle aged gentleman lying in bed in NAD Eyes: No Scleral Icterus Ears/Nose/Mouth/Throat: Mucous Membranes Moist Neck: Trachea Midline Respiratory: Symmetrical Chest Expansion and Respiratory Effort, Clear to Auscultation Cardiovascular: - - Normal S1 and S2, irregularly irregular Abdominal: NL Sounds; No Tenderness; No Distention Skin: - - Mild diaphoresis Neurological: Alert and Oriented x 3, NL Muscle Strength and Tone, - - Power 5/ 5 all 4 extremities, no nystagmus, EOMI Result Diagrams: 10/28/19 15:54 10/29/19 06:37 Assess/Plan/Problems-Billing Assessment: Mr Ervin is a 49yo M with PMH of lone Afib in 2012, PSA (recent left rehab for crystal meth), who presented to ED with c/o N/V/D and dyspnea, found to be in Afib RVR. - Patient Problems (1) Atrial fibrillation with RVR Comment: - Echo showed EF 45-50%. - He converted to sinus rhythm but is still dizzy and nauseated. - Cardiology input appreciated. - Continue Metoprolol and Lovenox for now; plan to change to NOAC on discharge and f/u with Dr Licea in 4 weeks. (2) Hypomagnesemia Comment: - Replete. (3) Dizziness Comment: - Suspect multifactorial in the setting of gastroenteritis, dehydration , withdrawal. - Continue supportive care, but if persists, may need further w/u - at risk for CVA due to Afib. Anticoagulated now, but unclear for how long in Afib. (4) Gastroenteritis Comment: - Still has nausea and dizziness. - Continue compazine and IVF. (5) Alcohol withdrawal Comment: - Suspect some of his symptoms are secondary to withdrawal. - Continue WAM. (6) DVT prophylaxis Comment: - Lovenox. (7) Full code status Status and Disposition: OBV.
[2019-10-29] MEDS: Metoprolol Succinate XL TAB* 50 MG PO SCH (20:27)
--- NOTE | 2019-10-29 21:30 | CONS ---
CC: Hospitalist Service * CARDIOLOGY CONSULTATION REPORT: DATE OF CONSULT: 10/29/19 REASON FOR CONSULTATION: Atrial fibrillation. CHIEF COMPLAINT: Heart racing, nausea, vomiting, dizziness. HISTORY OF PRESENT ILLNESS: Mr. Ervin is a 49-year-old gentleman, new to the [facility]. He had atrial fibrillation in the distant past in the setting of excessive alcohol use. The patient states that Wednesday evening he noted some racing of the heart, nausea , dizziness, vomiting. He reports that he fainted. He then awoke the next day , yesterday Wednesday, was still nauseated and dizzy and vomiting. He said he was stumbling around and his roommate thought he needed to present to the emergency room. The patient was seen in the emergency room yesterday and found to be in atrial fibrillation with a rapid ventricular rate and electrolytes were abnormal. The patient states that he drank about 3 or 4 shots Wednesday night, not unusual for him, nothing , Wednesday he had more than that. The patient reports that he used to cocaine use, meth regularly, but he has been completely off of methamphetamine for quite a while now following rehab for this. He denies any recent recreational drug use other than alcohol. He has used marijuana and cocaine rarely in the past but nothing now. He has not taken any aael-cfj-kcskoyp medications. He does drink some caffeine. 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 PAST MEDICAL HISTORY: Includes: 1. Substance abuse with methamphetamine as above. 2. One episode of atrial fibrillation in the setting of alcohol abuse. PAST SURGICAL HISTORY: Includes knee surgeries and hernia repair. MEDICATIONS: Outpatient medications include omeprazole 40 mg a day. Inpatient medications include: 1. Tylenol p.r.n. 2. Lovenox 90 mg q.12 hours. 3. Folvite. 4. Lorazepam p.r.n. 5. Metoprolol IV p.r.n. heart rate. 6. Lopressor 25 mg q.6 hours. 7. MultiVites with minerals. 8. Compazine p.r.n. 9. Sodium chloride IV 150 cc an hour. 10. Thiamine 100 mg a day. 11. He is status post magnesium and potassium repletion. ALLERGIES: Include PHENOBARBITAL (mother apparently gave it to him when he was a child). FAMILY HISTORY: Positive for coronary artery disease. His father at age 62 of a myocardial infarction and paternal grandfather at age 65 of a myocardial infarction. His mother has a history of depression and substance abuse. SOCIAL HISTORY: The patient drinks alcohol regularly as above, history of methamphetamine abuse. Nonsmoker ever. REVIEW OF SYSTEMS: Positive for vertigo descriptions in the past when drinking more. Negative for orthopnea, PND. No chest pain. No recent constipation, diarrhea. Appetite was good prior to Wednesday. All other review of systems was negative. PHYSICAL EXAM: The patient is 5 feet 8 inches, weighs 190 pounds with a BMI of 29. Vital Signs on arrival to the emergency room: Blood pressure 147/103, pulse was 163, he was afebrile, oxygen saturation 98%. At the time I saw him, blood pressure 127/91, pulse was 59, respiratory rate is 16, oxygen saturation 97%, temperature 97.8. General Appearance: Stocky, somewhat mildly overweight , middle-aged gentleman lying in bed comfortable, in no acute distress. Psychologically, pleasant and cooperative. Neurologically, awake, alert, oriented to person, place, and time. Grossly normal sensory and motor function on bed exam. Skin: Fair redhead complexion, dry. No cyanosis or rashes. HEENT: Mucous membranes moist. Neck without increased JVP. Good carotid pulses. No audible bruits. Breath sounds clear with good effort. No wheezes, rales, or rhonchi. Coronary: S1, S2 regular without murmurs, rubs, or extrasystoles. Abdomen: Nontender, no epigastric discomfort. No hepatosplenomegaly or masses. Lower extremities: Warm, free of edema with 1 to 2+ posterior tibial pulses bilaterally. DIAGNOSTIC STUDIES/LAB DATA: 12-lead ECG on arrival to the emergency room 125 at 1531 shows atrial fibrillation with a ventricular rate of 165 beats per minute, QRS axis +35, normal interventricular conduction times, and normal ST segments. Labs on arrival: White count 9.1, hematocrit 49, platelets 156. INR 1.01, PTT 29. Sodium 136, potassium 3.5, bicarb 19, anion gap 15, BUN 7, creatinine 0.89, glucose 148, lactic acid 2.9, magnesium 1.1, bilirubin 1.4. Normal transaminases. TSH 0.88. Most recent labs on 10/29/19 post electrolyte replacement: sodium 138, potassium 3.9, chloride 108, bicarb 23, BUN 7, creatinine 0.83, glucose 102, magnesium 1.7, calcium 8.4. Troponins 0.01, 0.01 , 0.00. Toxicology showed serum alcohol less than 10. Chest x-ray from 10/28/19 showed no active cardiopulmonary disease. Echocardiogram from 10/29/19 showed mild left ventricular hypertrophy, mild global hypokinesis with an ejection fraction of 45% to 50%, RV function in the lower normal range, mild mitral and mild tricuspid insufficiency. IMPRESSION AND PLAN: In summary, Sunny Ervin is a 49-year-old gentleman admitted with atrial fibrillation and rapid ventricular rate with what sounds like about 24 hours of atrial fibrillation in the setting of excessive alcohol use, unsure what the syncopal episode represented, but he arrived with a small anion gap, lactic acidosis, low magnesium, which may have been from the vomiting but could also be related to alcohol intake. With the patient's paroxysmal atrial fibrillation, this is his second episode in the setting of alcohol and I recommended cessation of alcohol. We discussed other risks including high blood pressure, sleep apnea, age and he says it will sometimes wake himself up at night. Consideration of an outpatient sleep study should be made. The patient spontaneously cardioverted here following electrolyte replacement. I would continue him as an outpatient on beta-skip for blood pressure and heart rate control and control of ectopy. As he has a mild cardiomyopathy and his CHADS score of at least 2 if you count his hyperglycemia as diabetes, and based on hypertension, so I think it is reasonable to give him a NOAC either Xarelto or Eliquis for a month. He can follow up with me within a month to make further medication determinations. With the patient's hyperglycemia, this may be related to stress and alcohol, but I would educate the patient on diabetes and get him started on a diet with avoiding concentrated sweets and refined carbohydrates. With the patient's vertigo symptoms, this may be related to excessive alcohol and dehydration, but it does raise the possibility of cerebellar stroke or labyrinthine process and if this persists or recurs, additional imaging and evaluation should be considered. We could add a bubble study in the future to his echo to look for his risk of paradoxical embolus as well. Thank you for allowing me to assist in this nice relatively young man's care. [id number]/[facility] #: [id number] GISELE
[2019-10-30] MEDS: NS 0.9% 1000 ML** 1,000 ML IV SCH ×2 (00:23→08:33)
[2019-10-30 06:54] LABS: BUN/Creatinine Ratio 11.9 (8-20); Calcium 7.9 mg/dL (8.6-10.3); EGFR African American 117.5 (>60); EGFR Non-African American 97.1 (>60); Magnesium 1.8 mg/dL (1.9-2.7); Potassium 3.8 mmol/L (3.5-5.0)
[2019-10-30] MEDS: Metoprolol Succinate XL TAB* 50 MG PO SCH (08:32)
[2019-10-30] MEDS: Thiamine TAB* 100 MG TAB PO SCH (08:33)
[2019-10-30] MEDS: Multivitamins/Minerals TAB PO SCH (08:33)
[2019-10-30] MEDS: Folic Acid TAB* 1 MG PO SCH (08:33)
[2019-10-30] MEDS: Enoxaparin(*) 100 MG/ML SYR SUBCUT SCH (08:33)
[2019-10-30 11:20] VITALS: BP 117/81
[2019-10-30] MEDS: PROCHLORPERAZINE INJ 5 MG/ML 2 ML VIAL IV PRN (11:34)
--- NOTE | 2019-10-30 18:59 | DS ---
DISCHARGE SUMMARY: DATE OF ADMISSION: 10/28/19 DATE OF DISCHARGE: 10/30/19 HISTORY OF PRESENT ILLNESS: This 49-year-old man presented with palpitations, nausea, vomiting, and vertigo. He had had 3 to 4 alcoholic drinks the night before, possibly more. The patient states he is in recovery for other substance abuse. He has had atrial fibrillation once before, possibly related to alcohol use as well. Otherwise, he only takes omeprazole at home. On admission, his blood glucose was 148. It gradually fell, on the day of discharge it was 98. He has no history of diabetes. His ejection fraction was 45% to 50%. Left ventricular wall thickness was mildly increased with minor valvular abnormalities. The patient was in atrial fibrillation during the study. The patient spontaneously reverted to sinus rhythm and remained so for the rest of his hospital stay. He continued to have vertigo and nausea. He states that the last time he had atrial fibrillation he also had vertigo and nausea. The vertigo appeared to be positional and did precipitate the nausea. He was not vomiting anymore in the hospital and was eating normally. He was not specifically impaired by the vertigo. Dr. Licea recommended that he have anticoagulants for a month. He has recently moved to this area and we are arranging for him to have a primary care physician. I advised to have no alcoholic beverages at all and he appeared to be motivated to do so. He will return to work in 2 days. FINAL DIAGNOSES: 1. Paroxysmal atrial fibrillation. 2. Vertigo. 3. History of substance abuse. DISCHARGE MEDICATIONS: 1. Omeprazole 40 mg daily. 2. Apixaban 5 mg b.i.d. DISCHARGE CONDITION: stable DISCHARGE DISPOSITION: home [id number]/[facility] #: [id number] [facility]
[2019-10-31] MEDS ORDERED: Pantoprazole TAB * 40 MG TAB PO SCH (09:00)
== END 2019-10-30 13:00 | disposition home or self-care (01) ==
LOC: ED 15:28 → MEDTELE 19:21
PROVIDERS: ADMIT Internal Medicine; ATTEND Internal Medicine
DX: I48.0 Paroxysmal atrial fibrillation (principal); R11.10 Vomiting, unspecified; E83.42 Hypomagnesemia; Z79.899 Other long term (current) drug therapy; R42 Dizziness and giddiness; F19.10 Other psychoactive substance abuse, uncomplicated; K52.9 Noninfective gastroenteritis and colitis, unspecified; F10.239 Alcohol dependence with withdrawal, unspecified; R06.02 Shortness of breath; R94.31 Abnormal electrocardiogram [ECG] [EKG]
CPT/HCPCS: 36415; 71045; 80048; 80053; 80320; 83605; 83735; 83880; 84443; 84484; 85025; 85610; 85730; 87389; 93005; 93306; 96361; 96365; 96366; 96367; 96372; 96375; 96376; 99285; A9270-GY; G0378; G0480; J0780; J1650; J3411; J3475; J3490